=== PATIENT | male | born 1955 | race Two or more races ===

== ENCOUNTER 2024-08-30 22:58 | Emergency (ER) | payer MEDICARE ==
[~2024-08-30] VITALS: Ht 175.3 cm; Wt 104.6 kg
--- NOTE | 2024-08-31 00:09 | ED.PDOC ---
History of present illness HPI Comments 68-year-old male came to ER for elevated blood sugar levels. Patient is prediabetic, currently not on any medications, was advised to exercise and watch his diet instead. However, for the past few days, episodes of polydipsia and polyuria. Noted blood sugar levels ranging from 400-500 levels. Upon arrival blood sugar level was 431 Chief Complaint: Hyperglycemia Time Seen by MD: 00:09 History of present illness: Nurses Notes Allergies: Coded Allergies: No Known Drug Allergy (Verified Allergy, Unknown, 08/31/24) Home Meds Active Scripts Metformin Hydrochloride (Metformin Hcl) 1,000 Mg Tab, 1 TAB PO BID for 90 Days, #180 TAB 5 Refills Prov:CLYDE KEY MD 08/31/24 Information Source: Patient, Spouse Mode of Arrival: Ambulatory Timing: Days Duration: Intermittent Prehospital treatment: Accucheck [place]: Shaky, Sweaty Symptoms: Anxious, Shaky, Sweaty Past Medical History PAST MEDICAL HISTORY: High Lipids Past Medical History (Other): Prediabetes Surgical History: Denies all surgeries Family History Family History: Reviewed,noncontributory to illness Social History Smoker: Non-Smoker Alcohol: Denies ETOH Use Drugs: Denies Drug Use Lives In: Home Constitutional: denies: chills, diaphoresis, fatigue, fever, malaise, sweats, weakness, others EENTM: denies: blurred vision, double vision, ear bleeding, ear discharge, ear drainage, ear pain, ear ringing, eye pain, eye redness, hearing loss, mouth pain, mouth swelling, nasal discharge, nose bleeding, nose congestion, nose pain, photophobia, tearing, throat pain, throat swelling, voice changes, others Respiratory: denies: cough, hemoptysis, orthopnea, SOB at rest, shortness of breath, SOB with excertion, stridor, wheezing, others Cardiovascular: denies: chest pain, dizzy spells, diaphoresis, Dyspnea on exertion, edema, irregular heart beat, left arm pain, lightheadedness, palpitations, PND, syncope, others Gastrointestinal: denies: abdomen distended, abdominal pain, blood streaked bowels, constipated, diarrhea, dysphagia, difficulty swallowing, hematemesis, melena, nausea, poor appetite, poor fluid intake, rectal bleeding, rectal pain, vomiting, others Genitourinary: denies: burning, dysuria, flank pain, frequency, hematuria, incontinence, penile discharge, penile sore, pain, testicle pain, testicle swelling, urgency, others Neurological: denies: dizziness, fainting, headache, left sided numbness, left sided weakness, numbness, paresthesia, pre-existing deficit, right sided numbness, right sided weakness, seizure, speech problems, tingling, tremors, weakness, others Musculoskeletal: denies: back pain, gout, joint pain, joint swelling, muscle pain, muscle stiffness, neck pain, others Integumetry: denies: bruises, change in color, change in hair/nails, dryness, laceration, lesions, lumps, rash, wounds, others Allergic/Immunocompromised: denies: Difficulty Healing, Frequent Infections, Hives, Itching, others Hematologic/Lymphatic: denies: anemia, blood clots, easy bleeding, easy bruising, swollen glands, others Endocrine: reports: excessive thirst, excessive urination; denies: excessive hunger, excessive sweating, flushing, intolerance to cold, intolerance to heat, unexplained weight gain, unexplained weight loss, others Psychiatric: denies: anxiety, bipolar disorder, depression, hopeless, panic disorder, schizophrenia, sleepless, suicidal, others Physical Exam General Appearance: No Apparent Distress, Normal HEENT: Normal ENT Inspection, Pharynx Normal, TMs Normal Neck: Full Range of Motion, Non-Tender, Normal, Normal Inspection Respiratory: Chest Non-Tender, Lungs Clear, No Accessory Muscle Use, No Re spiratory Distress, Normal Breath Sounds Cardiovascular: No Edema, No JVD, No Murmur, No Gallop, Normal Peripheral Pulses, Regular Rate/Rhythm Breast Exam: Deferred Gastrointestinal: No Organomegaly, Non Tender, No Pulsatile Mass, Normal Bowel Sounds, Soft Genitalia: Deferred Pelvic: Deferred Rectal: Deferred Extremities: No calf tenderness, Normal capillary refill, Normal inspection, Normal range of motion, Non-tender, No pedal edema Musculoskeletal : Apperance: Normal Neurologic: Alert, metal box maker II-XII nml as Tested, No Motor Deficits, Normal Affect, Normal Mood, No Sensory Deficits Cerebellar Function: Normal Reflexes: Normal Skin: Dry, Normal Color, Warm Lymphatic: No Adenopathy Was a procedure done? Was a procedure done?: No Differential Diagnosis (DM) Differential Diagnosis: DKA, Hyperglycemia, Pyelonephritis, UTI X-Ray, Labs, Meds, VS Vital Signs Date Time Temp Pulse Resp B/P (MAP) Pulse Ox O2 Delivery O2 Flow Rate FiO2 08/31/24 00:04 98.6 107 18 119/84 (96) 92 98.6 Lab Test 08/31/24 02:19 08/30/24 23:58 08/30/24 23:50 Range/Units Urine Color Light-yellow Yellow Urine Clarity Clear Clear Urine pH 5.0 5.0-9.0 Urine Specific [place] 1.039 H 1.001-1.035 Urine Protein Negative Negative Urine Ketones 4+ H Negative Urine Blood Negative Negative /uL Urine Nitrite Negative Negative Urine Bilirubin Negative Negative Urine Urobilinogen Normal Negative mg/dL Urine Leukocyte Esterase Negative Negative /uL Urine RBC 1 0 - 3 /hpf Urine Microscopic WBC 1 0-3 /HPF Urine Squamous Epithelial Cells None seen <5 /hpf Urine Bacteria Many H None Seen /hpf Urine Yeast (Budding) Occasional None Seen /hpf Urine Sperm Present None Seen /hpf Urine Glucose 4+ H Normal mg/dL White Blood Count 8.8 4.4-10.8 10^3/uL Red Blood Count 5.82 4.5-5.90 10^6/uL Hemoglobin 17.4 13.5-17.5 g/dL Hematocrit 50.7 41.0-53.0 % Mean Corpuscular Volume 87.0 80.0-100.0 fL Mean Corpuscular Hemoglobin 30.0 28.0-32.0 pg Mean Corpuscular Hemoglobin Concent 34.4 32.0-36.0 g/dL Red Cell Distribution Width 14.1 11.8-14.3 % Platelet Count 287 140-450 10^3/uL Mean Platelet Volume 8.2 6.9-10.8 fL Neutrophils (%) (Auto) 40.8 37.0-80.0 % Lymphocytes (%) (Auto) 49.4 10.0-50.0 % Monocytes (%) (Auto) 7.1 0.0-12.0 % Eosinophils (%) (Auto) 1.7 0.0-7.0 % Basophils (%) (Auto) 1.0 0.0-2.0 % Neutrophils # (Auto) 3.6 1.6-8.6 10 ^3/uL Lymphocytes # (Auto) 4.4 0.4-5.4 10 ^3/uL Monocytes # (Auto) 0.6 0-1.3 10 ^3/uL Eosinophils # (Auto) 0.1 0-0.8 10 ^3/uL Basophils # (Auto) 0.1 0-0.2 10 ^3/uL Nucleated Red Blood Cells 0.1 % Blood Gas Specimen Type Venous Blood Gas Sample Site Vbg - n/a Blood Gas Patient Temperature 37.0 Arterial Blood Date Drawn [id number] Dru Test N/a Venous Blood pH 7.363 7.320-7.430 Venous Blood pCO2 at Patient Temp 29.2 L 38.0-54.0 mmHg Venous Blood pO2 at Patient Temp 54.7 H 23.0-48.0 mmHg Venous Blood HCO3 16.2 L 22.0-29.0 mmol/L Venous Blood Base Excess -7.6 L -2.0-3.0 mmol/L Blood Gas Modality Room air FiO2 % 21.0 Sodium Level 129 L 136-145 mmol/L Potassium Level 4.2 3.5-5.1 mmol/L Chloride Level 95 L 98-107 mmol/L Carbon Dioxide Level 17 L 20-31 mmol/L Anion Gap 17 H 5-15 Blood Urea Nitrogen 16 9-23 mg/dL Creatinine 1.18 0.700-1.30 mg/dL Glomerular Filtration Rate Calc 67 >90 mL/min BUN/Creatinine Ratio 13.6 10.0-20.0 Serum Glucose 434 *H 74-106 mg/dL Calcium Level 10.3 8.7-10.4 mg/dL Total Bilirubin 0.7 0.2-1.0 mg/dL Aspartate Amino Transferase (AST) 55 H 13-40 U/L Alanine Aminotransferase (ALT) 86 H 7-40 U/L Alkaline Phosphatase 191 H 46-116 U/L Total Protein 8.1 5.7-8.2 g/dL Albumin 4.5 3.2-4.8 g/dL POC Glucose 431 *H 70-106 mg/dl Time of 1ST Reevaluation: 00:05 Reevaluation 1ST: Unchanged Patient Education/Counseling: Diagnosis, Treatment Family Education/Counseling: Diagnosis, Treatment Departure 1 Departure Time of Disposition: 02:30 Impression: Primary Impression: Type 2 diabetes mellitus with hyperglycemia Disposition: 01 HOME / SELF CARE / HOMELESS Condition: Stable e-Prescriptions Metformin Hydrochloride (Metformin Hcl) 1,000 Mg Tab 1 TAB PO BID for 90 Days, #180 TAB 5 Refills Prov: CLYDE KEY MD 08/31/24 Discharged With: Self Critical Care Note Critical Care Time?: Yes (35 min-critical care time only) Critical care comment: Hyperglycemia Stability Stability form required: No Heart Score Heart Score: Heart Score Response (Comments) Value History N/A 0 EKG N/A 0 Age N/A 0 Risk Factors N/A 0 Troponin N/A 0 Total 0 I personally scribed for CLYDE KEY MD ([email or web address]) on 08/31/24 at 00:09. Electronically submitted by Jan Ayala ([email or web address]). CLYDE KEY MD Aug 31, 2024 00:09
[2024-08-31 00:35] LABS: Basophils # (auto) 0.1 10 ^3/uL (0-0.2); Eosinophils # (auto) 0.1 10 ^3/uL (0-0.8); Eosinophils % (auto) 1.7 % (0.0-7.0); Hematocrit 50.7 % (41.0-53.0); Hemoglobin 17.4 g/dL (13.5-17.5); Lymphocytes # (auto) 4.4 10 ^3/uL (0.4-5.4); Lymphocytes % (auto) 49.4 % (10.0-50.0); Mean Corpuscular Hgb Conc. 34.4 g/dL (32.0-36.0); Monocytes # (auto) 0.6 10 ^3/uL (0-1.3); Monocytes % (auto) 7.1 % (0.0-12.0); Neutrophils # (auto) 3.6 10 ^3/uL (1.6-8.6); Neutrophils % (auto) 40.8 % (37.0-80.0); Nucleated Red Blood Cells % 0.1 %; Platelet Count (auto) 287 10^3/uL (140-450); Red Blood Cells 5.82 10^6/uL (4.5-5.90); Red Cell Distribution Width 14.1 % (11.8-14.3); White Blood Cell 8.8 10^3/uL (4.4-10.8)
[2024-08-31 00:51] LABS: Albumin 4.5 g/dL (3.2-4.8); Anion Gap 17 (5-15); BUN/Creatinine Ratio 13.6 (10.0-20.0); Blood Urea Nitrogen 16 mg/dL (9-23); Calcium 10.3 mg/dL (8.7-10.4); Potassium 4.2 mmol/L (3.5-5.1); Total Protein 8.1 g/dL (5.7-8.2)
[2024-08-31 00:52] LABS: Bilirubin, Total 0.7 mg/dL (0.2-1.0)
[2024-08-31 00:54] LABS: Alanine Aminotransferase 86 U/L (7-40); Alkaline Phosphatase 191 U/L (46-116); Aspartate Aminotransferase 55 U/L (13-40); Carbon Dioxide 17 mmol/L (20-31); Chloride 95 mmol/L (98-107); Sodium 129 mmol/L (136-145)
[2024-08-31 00:55] LABS: Glucose 434 mg/dL (74-106)
[2024-08-31 03:17] LABS: Urine Bacteria MANY /hpf (None Seen); Urine Blood Negative /uL (Negative); Urine Budding Yeast OCCASIONAL /hpf (None Seen); Urine Clarity Clear (Clear); Urine Color Light-Yellow (Yellow); Urine Protein, UAD Negative (Negative); Urine Specific Gravity 1.039 (1.001-1.035); Urine Sperm PRESENT /hpf (None Seen); Urine Squamous Epithelial Cell None Seen /hpf (<5); Urine Urobilinogen Normal (Negative); Urine WBC 1 /HPF (0-3)
[2024-08-31] MEDS ORDERED: METF-372 PO (03:33)
[2024-08-31 05:40] VITALS: RESP 15; O2SAT 95
[2024-08-31 05:47] VITALS: BP 131/88; PULSE 110; RESP 20; TEMP 97.9; O2SAT 94
[2024-08-31] MEDS: SODIUM CHLORIDE 0.9% 1,000 ML IV ONE (05:53)
[2024-08-31] MEDS: InsuLIN REG 1unit/0.01ml Soln (100units/ml) SC ONE (05:54)
== END 2024-08-31 05:55 | disposition home or self-care (01) ==
LOC: ER 22:58
DX: E11.65 Type 2 diabetes mellitus with hyperglycemia (principal); E78.5 Hyperlipidemia, unspecified; Z79.84 Long term (current) use of oral hypoglycemic drugs
CPT/HCPCS: 36415; 36600; 80053; 81001; 82805; 82947; 85025; 99283; J1815; 82962